=== PATIENT | male | born 1980 | race Caucasian/White ===

== ENCOUNTER 2022-05-17 08:15 | Emergency (ER) | payer MEDICAID, SELFPAY ==
[2022-05-17 08:24] VITALS: BP 135/72; PULSE 91; RESP 18; TEMP 36.2; O2SAT 98
--- NOTE | 2022-05-17 09:18 | CRLHL7_ITS ---
For Patients: As a result of the 21st Century Cures Act, medical imaging exams and procedure reports are released immediately into your electronic medical record. You may view this report before your referring provider. If you have questions, please contact your health care provider. INDICATION: Epigastric pain. COMPARISON: None TECHNIQUE: CT examination of the abdomen and pelvis was performed following the uneventful intravenous administration of 96 cc of Isovue 370. Thin section axial images were obtained from the lung bases through the pubic symphysis. Oral contrast was not administered. Please note that all CT scans at this facility use dose modulation, iterative reconstruction, and/or weight-based dosing when appropriate to reduce radiation dose to as low as reasonably achievable. FINDINGS: LUNG BASES: The lung bases as visualized appear normal.The heart size is normal at the lung bases. LIVER/BILIARY SYSTEM:The liver is normal in size and configuration. There is no focal mass and there is no intra- or extra hepatic biliary ductal dilatation.Steatosis. The gallbladder appears normal ADRENALS: Normal KIDNEYS, URETERS and BLADDER:The kidneys are normal in size. There are numerous intrarenal calculi bilaterally, right greater than left. No definite obstructive uropathy. The course of several portions of the left ureter are obscured by embolic coils in the retroperitoneum. There are low-density lesions consistent with cysts. There is a mixed density lesion in the left lower pole which is not fully evaluated on this exam. This is best seen on coronal image 60, axial image 61 and sagittal image 15. This measures about 1.7 centimeters. A follow-up multiphase study is recommended in the nonacute care setting to exclude malignancy. The bladder as visualized appears normal SPLEEN:Normal appearance. PANCREAS: Appears normal. RETROPERITONEUM and MESENTERY: There is no mass, adenopathy or aortic aneurysm. Embolic coils in the left retroperitoneal vascular structure GASTROINTESTINAL SYSTEM: Fecal retention. Diverticulosis. No visible diverticulitis, colitis or obstruction. A prominent artery is seen anterior, lateral and left of the rectum. This is best seen on axial image 133. This may enter a small area of ulceration as seen on image 134 and 135. Correlate with history of rectal bleeding. Appropriate follow up is advised PELVIS: No mass, adenopathy or free fluid. OSSEOUS STRUCTURES and ABDOMINAL WALL: There is an age-appropriate appearance of the osseous structures.No significant abdominal wall defect. OTHER: No free fluid or free air. I discussed this case with Dr. Ok Christian IMPRESSION: 1. There is no specific visible cause for epigastric pain. 2. Intrarenal calculi bilaterally, right greater than left. No evidence of current or recent obstructive uropathy. 3. Indeterminate left renal lesion measures 1.7 centimeters. If follow-up multiphase studies recommended as clinically appropriate time. 4. Prominent arterial vessel entering the antral lateral left lower rectum which may be associated with a small area of ulceration or perhaps an internal hernia. Correlate with history of recent rectal bleeding. Appropriate follow-up of this area is advised Please note that all CT scans at this facility use dose modulation, iterative reconstruction, and/or weight-based dosing when appropriate to reduce radiation dose to as low as reasonably achievable. Kyaw Suazo M.D. Body/Diagnostic Radiologist [email or web address] TROYG/djw: DW/Dictated by: Kyaw Suazo MD @ 05/17/2022 10:16:00 AM (Electronically Signed)
--- NOTE | 2022-05-17 09:20 | ED.ABDPAIN ---
HPI - Abdominal Pain General Chief Complaint: Abdominal Pain Stated Complaint: Abdominal pain/blood in stool/nausea Time Seen by Provider: 05/17/22 09:08 History of Present Illness HPI narrative: This 42-year-old male comes in reporting upper epigastric abdominal pain that is been present constantly over the past week or so. He states that the pain is worse when taking any kind of food. He does not report any fevers. He has had some vomiting and occasional diarrhea. He does report some blood in the diarrhea at times. He was seen in urgent care and was told that it was a stomach virus. He has been taking Kaopectate without any relief. He does not report any fevers. Related Data Previous Rx's Medication Instructions Recorded ketorolac 10 mg tablet 10 mg PO Q8H 5 days #15 tabs 05/17/22 ondansetron HCl 4 mg tablet 4 mg PO Q6H #20 tabs 05/17/22 pantoprazole 20 mg tablet,delayed 20 mg PO DAILY #20 tabs 05/17/22 release (Protonix) Allergies Allergy/AdvReac Type Severity Reaction Status Date / Time bacitracin Allergy Mild Verified 05/17/22 08:28 [From Neosporin ([id number])] neomycin Allergy Mild Verified 05/17/22 08:28 [From Neosporin ([id number])] polymyxin B Allergy Mild Verified 05/17/22 08:28 [From Neosporin ([id number])] Review of Systems Status of ROS Reports: 10 or more systems reviewed and unremarkable except as noted in History and below Narrative Constitutional: No fevers, no weight gain or loss. Eyes: No discharge. No vision changes. HENT: No congestion, no sore throat, no ear pain. Cardiovascular: No chest pain, no palpitations. Respiratory: No shortness of breath, no wheezes, no cough. Gastrointestinal: Abdominal pain as described above. Occasional vomiting and diarrhea. Genitourinary: No dysuria, no hematuria. Musculoskeletal: Normal range of motion. Skin: No rashes, no pruritis. Neurological: No dizziness, weakness, sensory change, speech change. Endo/Heme/Allergies: No bruising or bleeding. No polydipsia. Pysch: no suicidality, no anxiety, no insomnia. All other systems reviewed and are negative. PFSH PFSH Social History Smoking Status: Current every day smoker How often do you have a drink containing alcohol: never AUDIT-C Alcohol total score: 0 Non-prescribed substance use: declined to answer Exam Narrative: Exam Narrative: Constitutional: Well-developed, well-nourished, no acute distress. HEENT: Normocephalic, atraumatic. Neck: Normal range of motion. Nontender. Supple. Heart: Regular. No murmurs. Normal rate. Intact distal pulses. Lungs: Clear to auscultation. No chest discomfort. No wheezes, rhonchi, or rales. Abdomen: Normal bowel sounds. Tenderness in the upper epigastric region. No rebound tenderness. Genitalia: Deferred. Back: No midline tenderness. Normal range of motion. Extremities: Normal range of motion. No injury. Skin: Intact. No rash. Warm. No erythema or pallor. Neurologic: No altered sensation. No weakness. Alert and oriented. Psychiatric: No suicidality. No anxiety or depression. No insomnia. Nursing notes and vitals signs are reviewed. Const: Vital Signs, click to edit/add: Vital Signs - 24 hr 05/17/22 08:24 Temperature 97.1 F L Pulse Rate [Pulse Oximeter] 91 Respiratory Rate 18 Blood Pressure [Ri t Upper Arm] 135/72 Pulse Oximetry 98 Oxygen Delivery Me thod Room Air Course Vital Signs Vital signs: Initial Vital Signs Temperature 97.1 F L 05/17/22 08:24 Temperature Source Temporal Artery Scan 05/17/22 08:24 Pulse Rate 91 05/17/22 08:24 Pulse Rhythm 05/17/22 08:24 Pulse Strength 3+ Normal 05/17/22 08:24 Respiratory Rate 18 05/17/22 08:24 Blood Pressure 135/72 05/17/22 08:24 Blood Pressure Mean 93 05/17/22 08:24 Pulse Oximetry 98 05/17/22 08:24 Oxygen Delivery Method 05/17/22 08:24 Vital Signs Temperature 97.1 F L 05/17/22 08:24 Pulse Rate 91 05/17/22 08:24 Respiratory Rate 18 05/17/22 08:24 Blood Pressure 135/72 05/17/22 08:24 Pulse Oximetry 98 05/17/22 08:24 Oxygen Delivery Method 05/17/22 08:24 Temperature 97.1 F L 05/17/22 08:24 Pulse Rate 91 02/13/23 08:24 Respiratory Rate 18 05/17/22 08:24 Blood Pressure 135/72 05/17/22 08:24 Pulse Oximetry 98 05/17/22 08:24 Oxygen Delivery Method 05/17/22 08:24 MDM - Abdominal Pain MDM Narrative Medical decision making narrative: This patient comes in reporting upper epigastric abdominal pain for the past week or so. This pain is worse with taking food. An IV was established and labs were drawn. CT imaging of the abdomen and pelvis returns with no findings that explain upper epigastric abdominal pain. He does have some reactive area in the rectum suggestive of a bleeding hemorrhoid. The patient states that he does have bright red blood in his diarrhea at times. I advised him to follow-up for a colonoscopy to further evaluate this. He may also benefit from an endoscopy if his symptoms in the upper abdomen continue. Lab results are all returning in normal range. He did receive a GI cocktail which brought some minimal relief. This patient is okay to be discharged home and encouraged to make follow-up with upper and lower GI scopes. He received prescription for Protonix, Zofran, and Toradol. Lab Data Labs: Lab Results 05/17/22 05/17/22 05/17/22 Range/Units 09:30 09:30 09:30 WBC 7.81 (4.50-11.00) K/uL RBC 4.85 (4.30-5.90) m/uL Hgb 14.9 (13.5-17.5) gm/dL Hct 44.0 (37.0-53.0) % MCV 91 (80-100) fL MCH 31 (26-34) pg MCHC 34 (32-36) gm/dL RDW Coeff of Carlton 12.4 (11.5-15.5) % Plt Count 345 (140-440) K/uL Neut % (Auto) 71.8 (42.0-72.0) % Lymph % (Auto) 16.1 L (20-44) % [place] % (Auto) 7.7 (0.0-11.0) % Eos % (Auto) 4.0 (0.0-7.0) % Baso % (Auto) 0.3 (0.0-3.0) % Neut # (Auto) 5.61 (1.7-7.0) K/uL Lymph # (Auto) 1.30 (0.90-2.90) K/uL [place] # (Auto) 0.60 (0.00-0.90) K/UL Eos # (Auto) 0.31 (0.00-0.50) K/uL Baso # (Auto) 0.02 (0.00-0.30) K/uL Sodium 137 (135-149) mmol/L Potassium 4.2 (3.6-5.1) mmol/L Chloride 105 (96-114) mmol/L Carbon Dioxide 28 (20-32) mmol/L BUN 14 (5-24) mg/dL Creatinine 0.6 (0.5-1.5) mg/dL Estimated GFR 124 ml/min Glucose 109 (60-115) mg/dL Calcium 8.8 (8.4-10.6) mg/dL Total Bilirubin 0.6 (0.1-1.5) mg/dL Direct Bilirubin 0.2 (0.0-0.5) mg/dL AST 30 (12-35) U/L ALT 32 (4-50) U/L Alkaline Phosphatase 53 (40-150) U/L Total Protein 6.6 (6.0-8.3) g/dL Albumin 3.9 (3.3-5.0) g/dL Lipase 68 (23-300) U/L Imaging Data CT scan - abdomen: Radiologist's impression: 1. There is no specific visible cause for epigastric pain. 2. Intrarenal calculi bilaterally, right greater than left. No evidence of current or recent obstructive uropathy. 3. Indeterminate left renal lesion measures 1.7 centimeters. If follow-up multiphase studies recommended as clinically appropriate time. 4. Prominent arterial vessel entering the antral lateral left lower rectum which may be associated with a small area of ulceration or perhaps an internal hernia. Correlate with history of recent rectal bleeding. Appropriate follow-up of this area is advised Discharge Plan Discharge Clinical Impression: Abdominal pain Patient Disposition: Home, Self-Care Condition: Stable Additional Instructions: Take medication as needed and indicated. Follow up with clinic for colonoscopy and endoscopy. Return if worsening symptoms happen. Prescriptions: New ondansetron HCl 4 mg tablet 4 mg PO Q6H Qty: 20 0RF ketorolac 10 mg tablet 10 mg PO Q8H 5 Days Qty: 15 0RF pantoprazole [Protonix] 20 mg tablet,delayed release (DR/EC) 20 mg PO DAILY Qty: 20 2RF Follow Up/Referrals: Provider,Not a Local [Primary Care Provider] - Stand Alone Forms: MyHealth Info Instructions
[2022-05-17 09:36] LABS: Basophils Absolute Auto 0.02 K/uL (0.00-0.30); Basophils Percent Auto 0.3 % (0.0-3.0); Eosinophils Absolute Auto 0.31 K/uL (0.00-0.50); Hemoglobin* 14.9 gm/dL (13.5-17.5); Immature Granulocytes Abs Auto 0.01 K/uL (0.00-0.30); Immature Granulocytes Pct Auto 0.1 %; Lymphocytes Percent Auto 16.1 % (20-44); Mean Corpuscular HGB Conc 34 gm/dL (32-36); Mean Corpuscular Hemoglobin 31 pg (26-34); Mean Corpuscular Volume 91 fL (80-100); Monocytes Percent Auto 7.7 % (0.0-11.0); Neutrophils Absolute Auto 5.61 K/uL (1.7-7.0); Neutrophils Percent Auto 71.8 % (42.0-72.0); Platelet Count* 345 K/uL (140-440); RDW Coefficient of Variation % 12.4 % (11.5-15.5); Red Blood Count 4.85 m/uL (4.30-5.90); White Blood Count* 7.81 K/uL (4.50-11.00)
[2022-05-17 09:38] LABS: Slide Review Reflex No
[2022-05-17 10:02] LABS: Chloride* 105 mmol/L (96-114); Potassium* 4.2 mmol/L (3.6-5.1); Sodium* 137 mmol/L (135-149)
[2022-05-17 10:03] LABS: Albumin* 3.9 g/dL (3.3-5.0)
[2022-05-17 10:05] LABS: Blood Urea Nitrogen* 14 mg/dL (5-24); Carbon Dioxide* 28 mmol/L (20-32); Creatinine* 0.6 mg/dL (0.5-1.5); Estimated Glomerular Filt Rate 124 ml/min; Glucose* 109 mg/dL (60-115)
[2022-05-17 10:06] LABS: Alanine Aminotransferase* 32 U/L (4-50); Alkaline Phosphatase* 53 U/L (40-150); Aspartate Amino Transferase* 30 U/L (12-35); Bilirubin Direct* 0.2 mg/dL (0.0-0.5); Bilirubin Total* 0.6 mg/dL (0.1-1.5); Calcium* 8.8 mg/dL (8.4-10.6); Lipase* 68 U/L (23-300); Total Protein* 6.6 g/dL (6.0-8.3)
[2022-05-17] MEDS: GI COCKTAIL (VISC LIDO/ANTACID) 30 ML PO (10:45)
== END 2022-05-17 11:23 | disposition home or self-care (01) ==
PROVIDERS: Emergency Provider Emergency Medicine Emergency Medical Services
DX: R10.13 Epigastric pain (principal)
CPT/HCPCS: 36415; 74177; 80048; 80076; 83690; 85025; 99284; A9270; Q9967